=== PATIENT | male | born 1960 | race Caucasian/White ===

== ENCOUNTER 2016-12-02 05:18 | Day surgery (SDC) | payer BC ==
[~2016-12-02] VITALS: Ht 175.3 cm; Wt 79.4 kg
[~2016-12-02 05:18] MED LIST: ASPIRIN325 MG PO; ATORVASTATIN CA40 MG PO; B COMPLETE1 EACH PO; LASIX40 MG PO; LIPITOR40 MG PO; MELOXICAM15 MG PO; OMEPRAZOLE20 MG; PRINIVIL10 MG PO; VITAMIN B-6100 MG PO; VITAMIN D35000 UNIT; VITAMIN D35000 UNIT PO; ZESTRIL10 MG PO; ZOFRAN ODT4 MG PO
[2016-12-02 06:25] VITALS: BP 120/76
[2016-12-02] MEDS ORDERED: NORCO 5/3251 TABLET PO (08:35)
[2016-12-02 09:13] VITALS: BP 118/51
[2016-12-02 10:13] VITALS: BP 106/51
== END 2016-12-02 10:32 | disposition home or self-care (01) ==
LOC: SDC 05:18
PROC: 0D5Q7ZZ Destruction of Anus, Via Natural or Artificial Opening (ICD-10-PCS; principal; 2016-12-02)
DX: A63.0 Anogenital (venereal) warts (principal); Z79.82 Long term (current) use of aspirin; Z80.8 Family history of malignant neoplasm of other organs or systems; Z82.3 Family history of stroke
CPT/HCPCS: 93005; J0330; J2405; J3010; S0020

== ENCOUNTER 2016-12-10 22:52 | Inpatient (IN) | payer BC ==
[~2016-12-10] VITALS: Ht 175.3 cm; Wt 78.9 kg
[~2016-12-10 22:52] MED LIST changes: +NORCO 5/3251 TABLET PO
[2016-12-10 23:16] LABS: HEMATOCRIT 39.6 % (38.0-50.0); MCHC 33.3 G/DL (30.0-36.0); MEAN PLAT.VOLUME 8.6 uM^3 (9.0-12.4); PLATELET COUNT 290 K/uL (156-360); RBC DIS.WIDTH-CV 13.7 % (11.8-14.6); RBC DIS.WIDTH-SD 39.6 % (39-53); RED BLOOD COUNT 4.89 M/uL (4.00-5.50); WHITE BLOOD COUNT 7.5 K/uL (4.1-10.2)
[2016-12-10 23:41] LABS: CHLORIDE 109 mEq/L (99-109); POTASSIUM 4.1 mEq/L (3.7-5.4); SODIUM 139 mEq/L (136-147)
[2016-12-10 23:42] LABS: GLUCOSE 144 mg/dL (70-99)
[2016-12-10 23:44] LABS: ANION GAP 6 MEQ/L (2-14)
[2016-12-10 23:45] LABS: SERUM ETHYL ALCOHOL < 10 mg/dL
[2016-12-10 23:46] LABS: GFR ESTIMATE (CALCULATED) > 59 mL/min/
[2016-12-10 23:47] LABS: UREA NITROGEN (BUN) 19 mg/dL (9-23)
[2016-12-11] MEDS ORDERED: LITE COAT ASPI325 M1 PO (01:54)
[2016-12-11 05:00] VITALS: BP 177/87
[2016-12-11 08:08] VITALS: BP 163/78
[2016-12-11 11:45] VITALS: BP 169/81
[2016-12-11 15:54] VITALS: BP 180/82
[2016-12-11] MEDS ORDERED: LOVENOX40 MG/0.4 SC (17:03)
[2016-12-11] MEDS ORDERED: ENDOCET 5-3251 EACH PO (17:28)
[2016-12-11] MEDS ORDERED: SENOKOT S,PE1 TABLET PO (17:28)
[2016-12-11 21:28] VITALS: BP 131/66
[2016-12-11 23:49] VITALS: BP 124/74
[2016-12-12 04:17] VITALS: BP 119/61
[2016-12-12 05:38] LABS: HEMATOCRIT 34.6 % (38.0-50.0); MCV 82.6 FL (86-99)
[2016-12-12 06:04] LABS: ANION GAP 6 MEQ/L (2-14); CHLORIDE 100 MEQ/L (99-109); GFR ESTIMATE (CALCULATED) > 59 mL/min/; GLUCOSE 113 mg/dL (70-99); POTASSIUM 4.4 MEQ/L (3.7-5.4); SAMPLE HEMOLYSIS CHECK 0; SAMPLE ICTERIC CHECK 0; SAMPLE LIPEMIA CHECK 0; SODIUM 134 MEQ/L (136-147); UREA NITROGEN (BUN) 8 mg/dL (9-23)
[2016-12-12 11:33] VITALS: BP 141/73
[2016-12-12 16:20] VITALS: BP 132/65
[2016-12-12 19:32] VITALS: BP 144/65
[2016-12-13 00:05] VITALS: BP 140/65
[2016-12-13 03:49] VITALS: BP 138/73
[2016-12-13 04:55] LABS: HEMATOCRIT 30.8 % (38.0-50.0); MCV 81.1 FL (86-99)
[2016-12-13 05:14] LABS: CHLORIDE 103 mEq/L (99-109); POTASSIUM 3.7 mEq/L (3.7-5.4); SODIUM 136 mEq/L (136-147)
[2016-12-13 05:15] LABS: GLUCOSE 146 mg/dL (70-99)
[2016-12-13 05:17] LABS: ANION GAP 5 MEQ/L (2-14)
[2016-12-13 05:20] LABS: GFR ESTIMATE (CALCULATED) > 59 mL/min/; UREA NITROGEN (BUN) 12 mg/dL (9-23)
[2016-12-13 08:30] VITALS: BP 167/80
[2016-12-13 12:39] VITALS: BP 132/70
[2016-12-13 16:32] VITALS: BP 133/77
[2016-12-13 20:08] VITALS: BP 139/65
[2016-12-14 00:21] VITALS: BP 135/75
[2016-12-14 07:38] VITALS: BP 140/70
[2016-12-14 12:00] VITALS: BP 138/64
[2016-12-14 15:53] VITALS: BP 139/64
== END 2016-12-14 18:19 | disposition home or self-care (01) | DRG 494 ==
LOC: EME 22:52 → EDOF 12-11 02:08 → 3EAST 12-11 02:08
PROVIDERS: Emergency Medicine; Orthopaedic Surgery; Orthopaedic Surgery Sports Medicine
PROC: 0QSG05Z Reposition Right Tibia with External Fixation Device, Open Approach (ICD-10-PCS; principal; 2016-12-11)
PROC: 0QSGXZZ Reposition Right Tibia, External Approach (ICD-10-PCS; 2016-12-11)
DX: S82.251A Displaced comminuted fracture of shaft of right tibia, initial encounter for closed fracture (principal); S82.451A Displaced comminuted fracture of shaft of right fibula, initial encounter for closed fracture; S46.911A Strain of unspecified muscle, fascia and tendon at shoulder and upper arm level, right arm, initial encounter; V23.4XXA Motorcycle driver injured in collision with car, pick-up truck or van in traffic accident, initial encounter; Y92.410 Unspecified street and highway as the place of occurrence of the external cause; I10 Essential (primary) hypertension; E78.00 Pure hypercholesterolemia, unspecified; E55.9 Vitamin D deficiency, unspecified; R60.0 Localized edema; G47.30 Sleep apnea, unspecified; Z86.73 Personal history of transient ischemic attack (TIA), and cerebral infarction without residual deficits; Z87.891 Personal history of nicotine dependence
CPT/HCPCS: 73560; 73590; 73701; 76000; 80048; 85014; 85018; 85027; 86850; 86900; 86901; 93005; 97530 GP; 99281; 99285; G0480; J0690; J1170; J1650; J2250; J2270; J2405; J2710; J3010; J7030

== ENCOUNTER 2017-01-11 14:51 | Emergency (ER) | payer BC ==
[~2017-01-11] VITALS: Ht 175.3 cm; Wt 72.0 kg
[~2017-01-11 14:51] MED LIST changes: +ENDOCET 5-3251 EACH PO; +LITE COAT ASPI325 M1 PO; +LOVENOX40 MG/0.4 SC; +SENOKOT S,PE1 TABLET PO
[2017-01-11 18:16] VITALS: BP 151/88
== END 2017-01-11 18:16 | disposition home or self-care (01) ==
LOC: EME 14:51
DX: S83.91XA Sprain of unspecified site of right knee, initial encounter (principal); S73.101A Unspecified sprain of right hip, initial encounter; X58.XXXA Exposure to other specified factors, initial encounter
CPT/HCPCS: 73502; 73564; 99281; 99284

== ENCOUNTER 2017-08-14 16:43 | Observation (INO) | payer OTHER ==
[~2017-08-14] VITALS: Ht 175.3 cm; Wt 86.4 kg
[2017-08-14 17:41] LABS: HEMATOCRIT 40.2 % (38.0-50.0); MCH 23.6 PG (29.0-34.0); MCHC 31.3 G/DL (30.0-36.0); MCV 75.1 FL (86-99); MEAN PLAT.VOLUME 8.1 uM^3 (9.0-12.4); PLATELET COUNT 310 K/uL (156-360); RBC DIS.WIDTH-CV 14.6 % (11.8-14.6); RBC DIS.WIDTH-SD 39.3 % (39-53); RED BLOOD COUNT 5.35 M/uL (4.00-5.50)
[2017-08-14 17:50] LABS: CHLORIDE 104 mEq/L (99-109); SODIUM 138 mEq/L (136-147)
[2017-08-14 17:52] LABS: GLUCOSE 90 mg/dL (70-99)
[2017-08-14 17:53] LABS: ANION GAP 12 MEQ/L (2-14)
[2017-08-14 17:56] LABS: GFR ESTIMATE (CALCULATED) > 59 mL/min/; UREA NITROGEN (BUN) 15 mg/dL (9-23)
[2017-08-14] MEDS ORDERED: ASPIRIN325 MG PO (18:15)
[2017-08-14 23:53] VITALS: BP 171/90
[2017-08-15 01:00] VITALS: BP 136/81
[2017-08-15 03:19] LABS: SAMPLE HEMOLYSIS CHECK 0; SAMPLE ICTERIC CHECK 0; SAMPLE LIPEMIA CHECK 0
[2017-08-15 03:29] LABS: HDL CHOLESTEROL 53 MG/DL (Desirable>=40); LDL CHOLESTEROL 100 mg/dL (Desirable<100); NON-HDL CHOLESTEROL 132 mg/dL (Desirable<160); SERUM ETHYL ALCOHOL < 10 mg/dL; TOTAL CHOLESTEROL 185 mg/dL (Desirable<200); TRIGLYCERIDES 161 MG/DL (Normal: <150)
[2017-08-15 04:00] VITALS: BP 132/78
[2017-08-15 05:52] LABS: MCH 23.3 PG (29.0-34.0); MCHC 30.8 G/DL (30.0-36.0); MCV 75.5 FL (86-99); MEAN PLAT.VOLUME 8.2 uM^3 (9.0-12.4); PLATELET COUNT 271 K/uL (156-360); RBC DIS.WIDTH-CV 14.8 % (11.8-14.6); RBC DIS.WIDTH-SD 40.6 % (39-53); WHITE BLOOD COUNT 7.2 K/uL (4.1-10.2)
[2017-08-15 08:00] VITALS: BP 139/77; BP 146/82; BP 149/91
[2017-08-15 09:49] LABS: AMPHETAMINES QUANT VALUE 0 NG/ML; BARBITUATES QUANT VALUE 0 NG/ML; BENZODIAZEPINES QUANT VALUE 0 NG/ML; BENZODIAZEPINES, URINE SCREEN Negative (200 ng/mL); MARIJUANA QUANT VALUE 0 NG/ML; OPIATES QUANTITATIVE VALUE 0 NG/ML; PHENCYCLIDINE QUANT VALUE 0 NG/ML
[2017-08-15 12:00] VITALS: BP 159/77
[2017-08-16 07:57] LABS: Estimated Average Glucose 117 mg/dL (70-123); HEMOGLOBIN A1c (GLYCOHEMOGLOB) 5.7 % HGB (Below 5.7)
== END 2017-08-15 16:37 | disposition home or self-care (01) ==
LOC: EME 16:43 → EDOF 20:49 → ENRESERV 20:52 → 5WEST 23:26
PROVIDERS: Hospitalist; Physician Assistant
DX: R42 Dizziness and giddiness (principal); R47.81 Slurred speech; Z86.73 Personal history of transient ischemic attack (TIA), and cerebral infarction without residual deficits; D72.829 Elevated white blood cell count, unspecified; I10 Essential (primary) hypertension; R73.03 Prediabetes; R61 Generalized hyperhidrosis; Z87.891 Personal history of nicotine dependence; Z79.82 Long term (current) use of aspirin; Z83.3 Family history of diabetes mellitus; Z82.49 Family history of ischemic heart disease and other diseases of the circulatory system
CPT/HCPCS: 70450; 70551; 80048; 80061; 80306 90; 83036; 85027; 93005; 93880; 99281; 99285; G0378; G0480; G8978 GP CH; G8979 GP CH; G8980 GP CH; J1644